=== PATIENT | female | born 1950 | race Caucasian/White ===

== ENCOUNTER 2020-12-15 18:31 | Emergency (ER) | payer SELFPAY ==
[~2020-12-15] VITALS: Ht 170.2 cm; Wt 65.0 kg
[2020-12-15 18:47] VITALS: BP 129/76
--- NOTE | 2020-12-15 22:25 | NUR ---
NOTICE PT NIL. ATTEMPTING TO CALL THE PHONE NUMBER THAT IS ASSOCIATED WITH THE CHART. LEFT MESSAGE.
== END 2020-12-15 23:15 | disposition left against medical advice (07) ==
LOC: ER 18:33
DX: M25.531 Pain in right wrist (principal); Z53.21 Procedure and treatment not carried out due to patient leaving prior to being seen by health care provider
CPT/HCPCS: 73110

== ENCOUNTER 2020-12-18 09:51 | Emergency (ER) | payer MEDICARE ==
[~2020-12-18] VITALS: Ht 160 cm; Wt 65.3 kg
[~2020-12-18 09:51] MED LIST: LIDOcaine 1% w/epiNEPHrine 1:200,000 30ml vial ONE
[2020-12-18] MEDS ORDERED: ondansetron 4mg rapidly disintigrating tab PO ONE (13:20)
[2020-12-18] MEDS ORDERED: HYDROcodone/acetaminophen 5mg/325mg tablet PO ONE (13:20)
[2020-12-18] MEDS ORDERED: ketorolac trometh inj. 60 MG/2 ML VIAL IM ONE (13:20)
[2020-12-18] MEDS ORDERED: acetaminophen 325mg tablet PO ONE (13:20)
[2020-12-18] MEDS ORDERED: MELO-100 PO (14:37)
[2020-12-18] MEDS ORDERED: HYDR-3965 PO (14:37)
[2020-12-18] MEDS ORDERED: morphine 4 MG/ML inj SYRINge IM ONE (14:45)
[2020-12-18 16:24] VITALS: BP 128/74
== END 2020-12-18 16:25 | disposition home or self-care (01) ==
LOC: ER 09:51
DX: S52.611A Displaced fracture of right ulna styloid process, initial encounter for closed fracture (principal); Z88.8 Allergy status to other drugs, medicaments and biological substances; Z79.899 Other long term (current) drug therapy; W10.9XXA Fall (on) (from) unspecified stairs and steps, initial encounter; Z91.81 History of falling; Y93.01 Activity, walking, marching and hiking; Y92.89 Other specified places as the place of occurrence of the external cause; Y99.8 Other external cause status
CPT/HCPCS: 25650; 73090; 73110; 96372; 99284; J1885; J2270; 29125

== ENCOUNTER 2023-02-01 11:18 | Emergency (ER) | payer MEDICARE ==
[~2023-02-01] VITALS: Ht 172.7 cm; Wt 67.8 kg
[~2023-02-01 11:18] MED LIST changes: -LIDOcaine 1% w/epiNEPHrine 1:200,000 30ml vial ONE; +MELO-100 PO
[2023-02-01 12:45] LABS: BASOPHILS % (AUTO) 0.7 % (0-1); EOSINOPHILS # (AUTO) 0.1 X10'3 (0-0.9); EOSINOPHILS % (AUTO) 2.5 % (0-6); HEMATOCRIT 42.1 % (35.0-45.0); HEMOGLOBIN 14.2 g/dl (12.0-16.0); LYMPHOCYTES % (AUTO) 17.8 % (21-51); MEAN CORPUSCULAR HEMOGLOBIN 33.5 PG (27.0-31.0); MEAN CORPUSCULAR HGB CONC 33.6 g/dL (33.0-36.5); MEAN CORPUSCULAR VOLUME 99.5 FL (78-98); MEAN PLATELET VOLUME 7.7 FL (7.4-10.4); MONOCYTES # (AUTO) 0.5 X10'3 (0-0.9); MONOCYTES % (AUTO) 9.1 % (2-12); NEUTROPHILS # (AUTO) 3.8 X10'3 (1.8-7.7); NEUTROPHILS % (AUTO) 69.9 % (42-75); PLATELET COUNT 331 X10'3 (140-440); RED BLOOD COUNT 4.23 X10'6 (4.20-5.60); RED CELL DISTRIBUTION WIDTH 14.9 % (11.5-14.5); WHITE BLOOD COUNT 5.4 X10'3 (4.5-11.0)
[2023-02-01 12:52] LABS: ALANINE AMINOTRANSFERASE 12 U/L (12-78); ALBUMIN 4.3 G/DL (3.4-5.0); ALBUMIN/GLOBULIN RATIO 1.2 (1.1-1.5); ALKALINE PHOSPHATASE 152 IU/L (46-116); ANION GAP 10 (8-16); ASPARTATE AMINO TRANSFERASE 19 U/L (10-37); BILIRUBIN,TOTAL 0.4 MG/DL (0.1-1.0); BLOOD UREA NITROGEN 14 MG/DL (7-18); BUN/CREATININE RATIO 14.3 (10.0-20.0); CALCIUM 9.8 MG/DL (8.5-10.1); CHLORIDE 97 MMOL/L (99-107); CREATININE 0.98 MG/DL (0.40-0.90); GLUCOSE 103 MG/DL (70-104); SODIUM 135 MMOL/L (135-145); TOTAL CARBON DIOXIDE 27.7 MMOL/L (24-32); TOTAL PROTEIN 7.8 G/DL (6.4-8.2); eGFR 56 ML/MIN
[2023-02-01 12:57] VITALS: BP 152/93; PULSE 94; RESP 16; TEMP 98.6; O2SAT 100
[2023-02-01 12:58] LABS: PRO BRAIN NATRIURETIC PEPTIDE 431 PG/ML (0-125)
== END 2023-02-01 18:39 | disposition left against medical advice (07) ==
LOC: ER 11:19
DX: R41.0 Disorientation, unspecified (principal); Z53.21 Procedure and treatment not carried out due to patient leaving prior to being seen by health care provider
CPT/HCPCS: 36415; 80053; 83880; 85025; 99281

== ENCOUNTER 2023-07-05 02:35 | Emergency (ER) | payer MEDICARE ==
[~2023-07-05] VITALS: Ht 170.2 cm; Wt 75.0 kg
[2023-07-05] MEDS ORDERED: METO5TAB98 PO (04:17)
[2023-07-05] MEDS ORDERED: CYCL-1 PO (04:17)
[2023-07-05] MEDS ORDERED: LIDO1ADH78 TOP (04:17)
[2023-07-05] MEDS ORDERED: ACET-812 PO (04:17)
[2023-07-05] MEDS: cephalexin 500mg capsule PO ONE (04:33)
[2023-07-05] MEDS: HYDROcodone/acetaminophen 10/325mg tab PO ONE (04:34)
[2023-07-05] MEDS: metoclopramide 10mg tablet PO ONE (04:34)
[2023-07-05 04:36] VITALS: BP 144/80; PULSE 89; RESP 18; TEMP 98.2; O2SAT 98
== END 2023-07-05 04:37 | disposition home or self-care (01) ==
LOC: ER 02:36
DX: T14.8XXA Other injury of unspecified body region, initial encounter (principal); R51.9 Headache, unspecified; G89.29 Other chronic pain; M54.9 Dorsalgia, unspecified; E78.00 Pure hypercholesterolemia, unspecified; I10 Essential (primary) hypertension; F17.200 Nicotine dependence, unspecified, uncomplicated; Z59.00 Homelessness unspecified; Z88.1 Allergy status to other antibiotic agents; Z79.899 Other long term (current) drug therapy; W55.03XA Scratched by cat, initial encounter; Y93.89 Activity, other specified; Y92.89 Other specified places as the place of occurrence of the external cause; Y99.8 Other external cause status
CPT/HCPCS: 70450; 99284